=== PATIENT | female | born 1980 | race Caucasian/White ===

== ENCOUNTER 2016-06-12 19:24 | Emergency (ER) | payer BC, OTHER ==
[~2016-06-12] VITALS: Ht 165.1 cm; Wt 140.2 kg
--- NOTE | ~2016-06-12 | EKG ---
[place] [address] [facility] [place] [address] ELECTROCARDIOGRAM REPORT Name: KAT COURTNEY Room #: DEP [facility] [id number] Admission: 06/12/16 Attend Phys: Discharge: 06/12/16 Date of : 76 Report #: [id number] THIS REPORT FOR: //name// [facility] ED Test Date: 2016-06-12 Test Time: 19:36:11 Pat Name: KAT COURTNEY Department: Room: Gender: F [employer] Sales Agent: liu larkin rn : 1980 Requested By: Tom Piña Order Number: [id number] MD: Samuel Baca Measurements Intervals [place] Rate: 74 P: 63 CO: 153 QRS: 25 QRSD: 98 T: 39 QT: 403 QTc: 448 Interpretive Statements Sinus rhythm Baseline wander in lead(s) II,III,aVF No previous ECG available for comparison Electronically Signed On 06-13-2016 9:01:28 ENVIRONMENTAL SERVICES COORDINATOR by Samuel Baca [email or web address] <ELECTRONICALLY SIGNED> By: Samuel Baca MD 06/13/16900 35 35 Samuel Baca MD /CHERI
[~2016-06-12 19:24] MED LIST: IBUPROFEN 800800 M1 PO
[2016-06-12 20:29] LABS: ABSOLUTE NEUTROPHILS 6.6 thou/uL (1.4-8.2); BASOPHILS 0.2 % (0.0-2.0); EOSINOPHILS 3.1 % (0.0-3.0); HEMATOCRIT 36.8 % (37.0-47.0); HEMOGLOBIN 12.2 gm/dL (12.0-15.0); LYMPHOCYTES 36.1 % (24.0-44.0); MCH 30.7 pg (26.0-34.0); MCHC 33.2 % (28.0-37.0); MCV 92.4 fL (80.0-100.0); MONOCYTES 5.9 % (1.0-8.0); PLATELET COUNT 306 thou/uL (150-400); POLYS 54.7 % (36.0-66.0); RBC 3.99 mil/uL (4.20-5.00); RDW 13.7 % (10.5-14.5)
[2016-06-12 20:30] LABS: MANUAL DIFF NO
[2016-06-12 20:34] LABS: ANION GAP 6 mmol/L (7-16); BUN 13 mg/dL (7-18); CALCIUM 8.3 mg/dL (8.5-10.1); CHLORIDE 111 mmol/L (98-107); CO2 31 mmol/L (21-32); CREATININE 0.6 mg/dL (0.6-1.3); GLUCOSE 101 mg/dL (70-99); POTASSIUM 3.5 mmol/L (3.5-5.1); SODIUM 148 mmol/L (136-145)
[2016-06-12 20:53] LABS: ALBUMIN 3.1 g/dL (3.4-5.0); ALKALINE PHOSPHATASE 95 U/L (46-116); MAGNESIUM 1.9 mg/dL (1.8-2.4); SGOT 14 U/L (15-37); SGPT 22 U/L (30-65); TOTAL BILIRUBIN 0.2 mg/dL (<0.1-1.0); TROPONIN-I < 0.04 ng/mL (<0.04-0.07)
[2016-06-12] MEDS ORDERED: TRAMADOL 50 MG50 MG PO (21:03)
[2016-06-12] MEDS ORDERED: NAPROSYN500 MG PO (21:03)
[2016-06-12] MEDS ORDERED: METHOCARBAMOL500 M2 PO (21:03)
[2016-06-12 21:13] LABS: CK-MB MASS < 0.5 ng/mL (<0.5-3.6)
[2016-06-12 22:12] VITALS: BP 115/59
== END 2016-06-12 22:13 | disposition home or self-care (01) ==
LOC: ER 19:24
PROVIDERS: Emergency Medicine
DX: G43.909 Migraine, unspecified, not intractable, without status migrainosus (principal); N94.6 Dysmenorrhea, unspecified; R20.9 Unspecified disturbances of skin sensation; M43.6 Torticollis; Z88.5 Allergy status to narcotic agent; Z88.8 Allergy status to other drugs, medicaments and biological substances

== ENCOUNTER 2016-10-30 23:59 | Emergency (ER) | payer BC, OTHER ==
[~2016-10-30] VITALS: Ht 165.1 cm; Wt 104.3 kg
[~2016-10-30 23:59] MED LIST changes: +METHOCARBAMOL500 M2 PO; +NAPROSYN500 MG PO; +TRAMADOL 50 MG50 MG PO
[2016-10-31 00:40] LABS: ABSOLUTE NEUTROPHILS 7.8 thou/uL (1.4-8.2); BASOPHILS 0.8 % (0.0-2.0); EOSINOPHILS 2.1 % (0.0-3.0); HEMATOCRIT 38.5 % (37.0-47.0); LYMPHOCYTES 29.5 % (24.0-44.0); MCH 31.6 pg (26.0-34.0); MCHC 33.9 g/dL (28.0-37.0); MCV 93.2 fL (80.0-100.0); PLATELET COUNT 266 thou/uL (150-400); POLYS 61.6 % (36.0-66.0); RBC 4.13 mil/uL (4.20-5.00); RDW 13.8 % (10.5-14.5); WBC 12.7 thou/uL (4.0-11.0)
[2016-10-31 00:49] LABS: MANUAL DIFF NO
[2016-10-31 00:52] LABS: URINE BILIRUBIN NEGATIVE (Negative); URINE BLOOD NEGATIVE (Negative); URINE COLOR YELLOW; URINE GLUCOSE-RANDOM* NEGATIVE (Negative); URINE KETONES NEGATIVE (Negative); URINE LEUKOCYTES-REFLEX NEGATIVE (Negative); URINE PROTEIN (DIPSTICK) NEGATIVE (Negative); URINE SPECIFIC GRAVITY 1.025 (1.003-1.035); URINE UROBILINOGEN 0.2 E.U./dl (0.2-1.0)
[2016-10-31 00:55] LABS: CALCIUM 8.6 mg/dL (8.5-10.1); CREATININE 0.6 mg/dL (0.6-1.0); POTASSIUM 3.8 mmol/L (3.5-5.1)
[2016-10-31 01:00] LABS: ALBUMIN 3.4 g/dL (3.4-5.0); TOTAL BILIRUBIN 0.2 mg/dL (<0.1-1.0); TOTAL PROTEIN 7.1 g/dL (6.4-8.2)
[2016-10-31] MEDS ORDERED: TRAMADOL 50 MG50 MG PO (01:29)
[2016-10-31] MEDS ORDERED: PRILOSEC OTC20 MG PO (01:29)
[2016-10-31] MEDS ORDERED: NORFLEX100 MG PO (01:29)
[2016-10-31 01:43] VITALS: BP 117/53
[2016-10-31 01:44] LABS: LARGE PLATELETS RARE
== END 2016-10-31 01:53 | disposition home or self-care (01) ==
LOC: ER 23:59
PROVIDERS: Emergency Medicine
DX: K21.9 Gastro-esophageal reflux disease without esophagitis (principal); G43.909 Migraine, unspecified, not intractable, without status migrainosus; Z88.6 Allergy status to analgesic agent; Z88.5 Allergy status to narcotic agent

== ENCOUNTER 2017-08-16 00:57 | Emergency (ER) | payer OTHER ==
[~2017-08-16] VITALS: Ht 165.1 cm; Wt 122.5 kg
--- NOTE | ~2017-08-16 | EKG ---
[address] [place] [address] ELECTROCARDIOGRAM REPORT Name: TAYLOR COURTNEYRIZ Room #: DEP Dario#: [id number] Admission: 08/16/17 Attend Phys: Discharge: 08/16/17 Date of : 76 Report #: [id number] THIS REPORT FOR: //name// [facility] ED Test Date: 2017-08-16 Test Time: 01:43:53 Pat Name: KAT COURTNEY Department: Room: Gender: F [employer] Finishing Supervisor: Tam CARLTON : 1980 Requested By: Wilfredo Gaytan Order Number: [id number] MD: Josh Nix Measurements Intervals [place] Rate: 74 P: 57 MA: 162 QRS: 21 QRSD: 106 T: 42 QT: 410 QTc: 455 Interpretive Statements Sinus rhythm Normal tracing Compared to ECG 06/12/2016 19:36:11 No significant change Electronically Signed On 08-16-2017 7:46:14 PRECISION LENS TECHNICIAN by Josh Nix [email or web address] <ELECTRONICALLY SIGNED> By: Josh Nix MD, [facility] 08/16/17 0746 0143 0143 Josh Nix MD, FACC /EPI
[~2017-08-16 00:57] MED LIST changes: +NORFLEX100 MG PO; +PRILOSEC OTC20 MG PO
[2017-08-16 01:53] LABS: ABSOLUTE NEUTROPHILS 6.3 thou/uL (1.4-8.2); BASOPHILS 1.1 % (0.0-2.0); EOSINOPHILS 2.2 % (0.0-3.0); HEMOGLOBIN 12.8 gm/dL (12.0-15.0); MCH 30.9 pg (26.0-34.0); MCHC 33.8 g/dL (28.0-37.0); MCV 91.3 fL (80.0-100.0); MONOCYTES 7.9 % (1.0-8.0); PLATELET COUNT 293 thou/uL (150-400); POLYS 53.8 % (36.0-66.0); RBC 4.16 mil/uL (4.20-5.00); RDW 13.5 % (10.5-14.5); WBC 11.8 thou/uL (4.0-11.0)
[2017-08-16 02:04] LABS: ANION GAP 8 mmol/L (7-16); BUN 13 mg/dL (7-18); CALCIUM 8.8 mg/dL (8.5-10.1); CHLORIDE 107 mmol/L (98-107); CO2 29 mmol/L (21-32); CREATININE 0.7 mg/dL (0.6-1.0); GLUCOSE 98 mg/dL (74-106); POTASSIUM 3.5 mmol/L (3.5-5.1); SODIUM 144 mmol/L (136-145)
[2017-08-16 02:12] LABS: ALBUMIN 3.3 g/dL (3.4-5.0); SGOT 35 U/L (15-37); SGPT 48 U/L (30-65); TOTAL BILIRUBIN 0.4 mg/dL (<0.1-1.0); TOTAL PROTEIN 7.5 g/dL (6.4-8.2); TROPONIN-I < 0.04 ng/mL (<0.06)
[2017-08-16] MEDS ORDERED: ZPAK PO (02:26)
== END 2017-08-16 02:47 | disposition home or self-care (01) ==
LOC: ER 00:57
PROVIDERS: Emergency Medicine
DX: J98.8 Other specified respiratory disorders (principal); R07.89 Other chest pain; G43.909 Migraine, unspecified, not intractable, without status migrainosus; Z88.5 Allergy status to narcotic agent; Z88.6 Allergy status to analgesic agent

== ENCOUNTER 2017-09-28 23:17 | Emergency (ER) | payer OTHER ==
[~2017-09-28] VITALS: Ht 162.6 cm; Wt 158.8 kg
[~2017-09-28 23:17] MED LIST changes: +ZPAK PO
[2017-09-28] MEDS ORDERED: TRAMADOL 50 MG50 MG PO (23:53)
[2017-09-29 00:51] VITALS: BP 112/48
== END 2017-09-29 00:57 | disposition home or self-care (01) ==
LOC: ER 23:17
DX: S93.492A Sprain of other ligament of left ankle, initial encounter (principal); M54.5 Low back pain; E66.01 Morbid (severe) obesity due to excess calories; G43.909 Migraine, unspecified, not intractable, without status migrainosus; Z88.6 Allergy status to analgesic agent; Z88.5 Allergy status to narcotic agent; Z68.44 Body mass index [BMI] 60.0-69.9, adult; W01.0XXA Fall on same level from slipping, tripping and stumbling without subsequent striking against object, initial encounter; Y93.89 Activity, other specified; Y92.89 Other specified places as the place of occurrence of the external cause; Y99.8 Other external cause status

== ENCOUNTER 2019-08-27 10:32 | Emergency (ER) | payer OTHER ==
[~2019-08-27] VITALS: Ht 165.1 cm; Wt 142.9 kg
[2019-08-27 12:41] VITALS: BP 131/84
== END 2019-08-27 12:41 | disposition home or self-care (01) ==
LOC: ER 10:32
DX: R05 Cough (principal); R09.81 Nasal congestion; G43.909 Migraine, unspecified, not intractable, without status migrainosus; G89.29 Other chronic pain; Z88.6 Allergy status to analgesic agent; Z88.5 Allergy status to narcotic agent; Z98.890 Other specified postprocedural states; Z90.49 Acquired absence of other specified parts of digestive tract

== ENCOUNTER 2021-03-01 01:41 | Emergency (ER) | payer OTHER ==
[~2021-03-01] VITALS: Ht 165.1 cm; Wt 131.5 kg
[2021-03-01] MEDS ORDERED: ATHENOL325 MG PO (02:31)
[2021-03-01] MEDS ORDERED: AUGMENTIN 875-1 EACH PO (05:59)
[2021-03-01] MEDS ORDERED: IBUPROFEN 800800 MG PO (06:00)
[2021-03-01 06:19] VITALS: BP 130/77
== END 2021-03-01 06:24 | disposition home or self-care (01) ==
LOC: ER 01:41
DX: H66.91 Otitis media, unspecified, right ear (principal); G43.909 Migraine, unspecified, not intractable, without status migrainosus; Z90.49 Acquired absence of other specified parts of digestive tract; Z88.6 Allergy status to analgesic agent; Z88.5 Allergy status to narcotic agent